=== PATIENT | female | born 1995 | race Two or more races ===

== ENCOUNTER 2017-08-22 00:25 | Emergency (ER) | payer MEDICAID ==
[2017-08-22 00:44] VITALS: BP 121/75
[2017-08-22] MEDS ORDERED: DIPH/PERTUSS(ACELL)/TETANUS VAC/PF 0.5 ML SYR (>=10YO) IM ONE (02:14)
[2017-08-22] MEDS ORDERED: LIDOCAINE 1% INJ (10 MG/ML) 10 ML MDV INJ ONE (02:14)
[2017-08-22] MEDS ORDERED: LIDOCAINE 1% INJ-PF (10 MG/ML) 30 ML SDV ONE (02:27)
[2017-08-22] MEDS ORDERED: IBUPROFEN 600 MG TABLET PO ONE (02:49)
--- NOTE | 2017-08-22 02:50 | ER Document Report ---
ED General - General Chief Complaint: Laceration Stated Complaint: FOOT INJURY Notes: Patient is a 22-year-old female without past medical history, unaware of her last tetanus immunization date who presents after falling, rolling her ankle over a piece of glass. She presents complaining of a severe, constant, aching pain to the right ankle. Any movement of the ankle worsens the pain. She has not tried anything to improve the pain. She did also sustain a 1 cm flap type laceration over the lateral malleolus. Denies any additional injuries today. No syncope as the etiology of today's fall. No history of similar injury in the past. TRAVEL OUTSIDE OF THE [place] IN LAST 30 DAYS: No - Related Data Allergies/Adverse Reactions: No Known Allergies Allergy (Verified 12/14/15 11:21) Past Medical History - General Information source: Patient - Social History Smoking Status: Never Smoker Frequency of alcohol use: None Drug Abuse: None Lives with: Spouse/Significant other Family History: Reviewed & Not Pertinent. denies: CAD Patient has suicidal ideation: No Patient has homicidal ideation: No - Past Medical History Cardiac Medical History: Denies: Hx DVT, Hx Heart Attack, Hx Hypertension Pulmonary Medical History: Denies: Hx Asthma, Hx Bronchitis, Hx Pneumonia Neurological Medical History: Reports: Hx Migraine Renal/ Medical History: Denies: Hx Peritoneal Dialysis - Immunizations Hx Diphtheria, Pertussis, Tetanus Vaccination: No Review of Systems - Review of Systems Notes: Constitutional: Negative for fever. Eyes: Negative for visual changes. ENT: Negative for facial injury Cardiovascular: Negative for chest injury. Respiratory: Negative for shortness of breath. Gastrointestinal: Negative for abdominal injury. Genitourinary: Negative for genital injury Musculoskeletal: Positive for right ankle injury Skin: Positive for laceration/abrasions. Neurological: Negative for head injury. Physical Exam - Vital signs Vitals: Temp Pulse Resp BP Pulse Ox 89 F L 89 20 121/75 97 08/22/17 00:41 08/22/17 00:41 08/22/17 00:41 08/22/17 00:41 08/22/17 00:41 The temperature is recorded is an obvious error. 98F is the recorded temperature Interpretation: Normal Notes: PHYSICAL EXAMINATION: GENERAL: Well-appearing, well-nourished and in no acute distress. HEAD: Atraumatic, normocephalic. EYES: sclera anicteric, conjunctiva are normal. ENT: Moist mucous membranes. NECK: Normal range of motion LUNGS: Normal work of breathing HEART: 2+ radial pulses bilaterally EXTREMITIES: no pitting or edema. No cyanosis. Mild swelling of the right ankle more prominent over the lateral malleolus. Dorsi and plantar flexion is present. NEUROLOGICAL: No focal neurological deficits. Moves all extremities spontaneously and on command. PSYCH: Normal mood, normal affect. SKIN: Warm, Dry, normal turgor, 1 cm flap type laceration over the central right lateral malleolus Course - Re-evaluation Re-evalutation: 08/22/17 02:48 Patient presents to right ankle pain and a small 1 cm flap type laceration over the lateral malleolus. Apparently she rolled her ankle when falling onto the glass object. There is bruising and ecchymosis over the lateral malleolus. 2+ DP pulse. X-ray without any evidence of an acute fracture. Patient is able to bear weight. The laceration was repaired without difficulty. The patient's tetanus was updated. At this time will discharge with return precautions and follow-up recommendations. Verbal discharge instructions given a the bedside and opportunity for questions given. Medication warnings reviewed. Patient is in agreement with this plan and has verbalized understanding of return precautions and the need for primary care follow-up in the next 24-72 hours. - Vital Signs Vital signs: Temp Pulse Resp BP Pulse Ox 89 F L 89 20 121/75 97 08/22/17 00:41 08/22/17 00:41 08/22/17 00:41 08/22/17 00:41 08/22/17 00:41 - Diagnostic Test Radiology reviewed: Image reviewed, Reports reviewed Radiology results interpreted by me: 08/22/17 03:22 Right ankle: No acute fracture or dislocation Procedures - Laceration/Wound Repair Right Ankle Wound length (cm): 1 Wound's Depth, Shape: Superficial Anesthetic type: 1% Lidocaine Wound explored: Clean Irrigated w/ Saline (mLs): 500 Wound Debrided: Minimal Wound Repaired With: Sutures Suture Size/Type: 5:0, Nylon Number of Sutures: 2 Layer Closure?: No Post-procedure wound care: Sterile dressing applied Post-procedure NV exam normal: Yes Complications: No Discharge - Discharge Clinical Impression: Right ankle pain Qualifiers: Chronicity: acute Qualified Code(s): M25.571 - Pain in right ankle and joints of right foot Laceration of right ankle Qualifiers: Encounter type: initial encounter Qualified Code(s): S91.011A - Laceration without foreign body, right ankle, initial encounter Condition: Good Disposition: HOME, SELF-CARE Additional Instructions: Please return to your primary doctor, the ED, or an urgent care in 7 days for suture removal. Return immediately if you develop spreading redness around the wound, pus from the wound, worsening pain, or a fever of >100.4. Keep the area clean and dry. Wash gently with soap and water twice daily and cover with antibiotic ointment. Your x-ray does not show any acute fracture today. You likely have a ligamentous strain. You should continue to take anti-inflammatories such as ibuprofen 600 mg every 6 hours. Continue to apply ice to the area is much your able. Please follow-up with your primary care physician if you do not have improving your symptoms in the next 1-2 weeks. Please return immediately if you develop weakness, numbness, spreading redness from the area, or any other symptoms that are concerning to you.
--- NOTE | 2017-08-22 03:18 | RADIOLOGY REPORT (SQ) ---
EXAM DESCRIPTION: ANKLE RIGHT COMPLETE CLINICAL HISTORY: 22 years, Female, pain, swelling COMPARISON: None. NUMBER OF VIEWS: 3 TECHNIQUE: Routine ankle radiographic protocol. LIMITATIONS: None. FINDINGS: Soft tissue swelling without underlying fracture or dislocation. Right tibiotalar joint appears intact. No lytic or blastic bone lesions. No radiopaque soft tissue foreign bodies or soft tissue gas. No evidence of osteomyelitis. IMPRESSION: Soft tissue swelling without underlying fracture or dislocation. 2011 [employer]- All Rights Reserved
== END 2017-08-22 04:14 | disposition home or self-care (01) ==
LOC: ER 00:25
PROC: 0HQMXZZ Repair Right Foot Skin, External Approach (ICD-10-PCS; principal; 2017-08-22)
DX: S91.011A Laceration without foreign body, right ankle, initial encounter (principal); M25.571 Pain in right ankle and joints of right foot; W25.XXXA Contact with sharp glass, initial encounter
CPT/HCPCS: 99283; 90471; 73610; 90715; 12001; J3490

== ENCOUNTER 2018-04-19 19:32 | Emergency (ER) | payer MEDICAID ==
[2018-04-19] MEDS ORDERED: ONDANSETRON 4 MG TAB.RAPDIS PO ONE (20:12)
--- NOTE | 2018-04-19 20:16 | ER Document Report ---
ED General - General Chief Complaint: Abdominal Pain Stated Complaint: VAGINAL BLEEDING,ABDOMINAL PAIN Time Seen by Provider: 04/19/18 20:07 TRAVEL OUTSIDE OF THE [place] IN LAST 30 DAYS: No - HPI Notes: Patient is a 22-year-old female who presents to the ED complaining of intermittent lower abdominal cramping and vaginal bleeding 2 days. Patient is also had nausea without vomiting. Patient states that she was evaluated a few days ago after doctor's office for a checkup due to nausea and was found that she was . Patient states that she is otherwise been eating and drinking without difficulties, but does have a decreased p.o. intake. She is urinating normally and having normal bowel movements. Patient has not noted any other vaginal odor or discharge. The pain does not radiate. Patient is not sure how far along she is. Her last full menstrual period was in January, but she is usually irregular. Patient does admit to smoking but denies IV drug use. She denies any drug allergies. Denies any headache, fever, neck pain, URI , sore throat, chest pain, palpitations, syncope, cough, shortness of breath, wheeze, dyspnea, vomiting/diarrhea, urinary retention, dysuria, hematuria, back pain, loss of control of bowel or bladder, numbness/tingling, muscle paralysis/ weakness, or rash. - Related Data Allergies/Adverse Reactions: No Known Allergies Allergy (Verified 12/14/15 11:21) Past Medical History - Social History Smoking Status: Current Some Day Smoker Frequency of alcohol use: Rare Drug Abuse: Marijuana Family History: Reviewed & Not Pertinent. denies: CAD Patient has suicidal ideation: No Patient has homicidal ideation: No - Past Medical History Cardiac Medical History: Denies: Hx DVT, Hx Heart Attack, Hx Hypertension Pulmonary Medical History: Denies: Hx Asthma, Hx Bronchitis, Hx Pneumonia Neurological Medical History: Reports: Hx Migraine Endocrine Medical History: Reports: Hx Diabetes Mellitus Type 2 Renal/ Medical History: Denies: Hx Peritoneal Dialysis - Immunizations Hx Diphtheria, Pertussis, Tetanus Vaccination: No Review of Systems - Review of Systems -: Yes All other systems reviewed and negative Physical Exam - Vital signs Vitals: Temp Pulse Resp BP Pulse Ox 99.0 F 104 H 18 133/81 H 98 04/19/18 19:54 04/19/18 19:54 04/19/18 19:54 04/19/18 19:54 04/19/18 19:54 - Notes Notes: PHYSICAL EXAMINATION: GENERAL: Well-appearing, well-nourished and in no acute distress. LUNGS: Breath sounds clear to auscultation bilaterally and equal. No wheezes rales or rhonchi. HEART: Regular rate and rhythm without murmurs, rubs, gallops. ABDOMEN: Soft, nontender, nondistended abdomen. No guarding, no rebound. No masses appreciated. Normal bowel sounds present. No CVA tenderness bilaterally. : deferred. Musculoskeletal: FROM to passive/active. Strength 5+/5. Extremities: No cyanosis, clubbing, or edema b/l. Peripheral pulses 2+. Capillary refill less than 3 seconds. NEUROLOGICAL: Normal speech, normal gait. PSYCH: Normal mood, normal affect. SKIN: Warm, Dry, normal turgor, no rashes or lesions noted. Course - Re-evaluation Re-evalutation: 04/19/18 22:46 Patient is an afebrile, well-hydrated, 22-year-old female who presents to the ED with an acute UTI and bacterial vaginosis as well as being approximately 13.5 weeks . CBC, CMP, transvaginal ultrasound were unremarkable for any acute pathology. Patient has a living intrauterine at this time. She has no noted vaginal bleeding and the cervix is closed. See urinalysis results. Urine cultures pending. See wet mount results. Chlamydia gonorrhea tests were negative. Patient has no significant tachycardia, tachypnea, or hypoxia. She is tolerating p.o. without difficulties. She is nontoxic- appearing. Abdomen is soft and nontender at this time. No other labs or imaging warranted at this time based on H&P. Low suspicion/risk for acute appendicitis, bowel obstruction, acute cholecystitis, acute cholangitis, perforated diverticulitis, incarcerated hernia, pancreatitis, perforated ulcer, peritonitis, sepsis, pelvic inflammatory disease, ectopic , tubo- ovarian abscess, ovarian torsion, or other systemic emergent condition at this time. Patient is aware that her condition can change from initial presentation and she needs to monitor symptoms closely and seek medical attention if any acute changes. Reviewed with Dr. Schmid about covering for BV in which was okay'd. Rx for flagyl and keflex. Conservative measures otherwise for symptoms. Recheck with OBGYN in 3-5 days. Recheck with your PCM in 3-5 days. Return to the ED with any worsening/concerning symptoms otherwise as reviewed in discharge. Patient is in agreement. - Vital Signs Vital signs: Temp Pulse Resp BP Pulse Ox 99.0 F 104 H 18 133/81 H 98 04/19/18 19:54 04/19/18 19:54 04/19/18 19:54 04/19/18 19:54 04/19/18 19:54 - Laboratory Result Diagrams: 04/19/18 20:20 04/19/18 20:20 Laboratory results interpreted by me: 04/19/18 04/19/18 04/19/18 20:20 20:20 20:20 WBC 11.5 H Hct 35.7 L Chloride 108 H Carbon Dioxide 21 L BUN 5 L Creatinine 0.43 L AST 299 H ALT 213 H Beta HCG, Quant 66580.00 H Urine Protein 30 H Urine Urobilinogen 4.0 H Ur Leukocyte Esterase LARGE H Discharge - Discharge Clinical Impression: Bacterial vaginosis, Acute UTI (urinary tract infection), Pelvic pain Condition: Stable Disposition: HOME, SELF-CARE Instructions: Cephalexin ([facility]), Metronidazole ([facility]), Pelvic Pain in ( [facility]), Urinary Tract Infection ([facility]), Vaginosis, Bacterial ([facility]) Additional Instructions: Push fluids (i.e. water, cranberry juice) Proper hygenic technique Keep the skin clean Tylenol as needed Take medications as directed F/u with your PCM/OBGYN in 3-5 days for a recheck Consider consult with a Urologist for ongoing/worsening symptoms. Return to the ED with any worsening symptoms and/or development of fever, headache, chest pain, palpitations, syncope, shortness of breath, trouble breathing, abdominal pain, n/v/d, blood in stool/urine, loss of control of bowel /bladder, urinary retention, or other worsening symptoms that are concerning to you. Prescriptions: Cephalexin Monohydrate [Keflex 500 mg Capsule] 500 mg PO BID #14 capsule Metronidazole [Flagyl] 500 mg PO BID #14 tablet Forms: Elevated Blood Pressure, Smoking Cessation Education Referrals: [facility] [Provider Group] - Follow up in 3-5 days
[2018-04-19 20:45] LABS: ABSOLUTE EOSINOPHILS # (AUTO) 0.1 10^3/uL (0.0-0.6); ABSOLUTE LYMPHOCYTES (AUTO) 3.5 10^3/uL (0.5-4.7); ABSOLUTE MONOCYTES (AUTO) 0.4 10^3/uL (0.1-1.4); ABSOLUTE NEUT (AUTO) 7.5 10^3/uL (1.7-8.2); BASOPHILS % (AUTO) 0.4 % (0-2); EOSINOPHILS % (AUTO) 0.7 % (0-6); HEMATOCRIT 35.7 % (36.0-47.0); HEMOGLOBIN 12.2 g/dL (12.0-15.5); LYMPHOCYTES % (AUTO) 30.1 % (13-45); MEAN CORPUSCULAR HEMOGLOBIN 27.8 pg (27.0-33.4); MEAN CORPUSCULAR HGB CONC 34.3 g/dL (32.0-36.0); MEAN CORPUSCULAR VOLUME 81 fl (80-97); MONOCYTES % (AUTO) 3.5 % (3-13); PLATELET COUNT 440 10^3/uL (150-450); RED CELL DISTRIBUTION WIDTH 13.6 % (11.5-14.0); SEGMENTED NEUTROPHILS % (AUTO) 65.3 % (42-78); TOTAL CELLS COUNTED % (AUTO) 100 %; WHITE BLOOD COUNT 11.5 10^3/uL (4.0-10.5)
[2018-04-19 20:57] LABS: BACTERIA (WET MOUNT) 3+ BACTERIA SEEN; RBCS (WET MOUNT) 1+ RBCS SEEN; T.VAGINALIS (WET MOUNT) NO TRICHOMONAS SEEN; WBCS (WET MOUNT) 1+ WBCS SEEN; YEAST (WET MOUNT) NO YEAST SEEN
[2018-04-19 20:59] LABS: APPEARANCE,URINE CLOUDY; BILIRUBIN,URINE NEGATIVE (NEGATIVE); COLOR,URINE YELLOW; GLUCOSE, URINE NEGATIVE (NEGATIVE); KETONES,URINE NEGATIVE (NEGATIVE); LEUKOCYTE ESTERASE,URINE LARGE (NEGATIVE); NITRITE,URINE NEGATIVE (NEGATIVE); PROTEIN,URINE 30 mg/dL (NEGATIVE); URINE SPECIFIC GRAVITY 1.026
[2018-04-19 22:02] LABS: ALANINE AMINOTRANSFERASE 213 U/L (9-52); ALBUMIN 3.7 g/dL (3.5-5.0); ALKALINE PHOSPHATASE 88 U/L (38-126); ANION GAP 12 (5-19); ASPARTATE AMINO TRANSFERASE 299 U/L (14-36); BILIRUBIN,DIRECT 0.3 mg/dL (0.0-0.4); BILIRUBIN,TOTAL 0.3 mg/dL (0.2-1.3); BLOOD UREA NITROGEN 5 mg/dL (7-20); CALCIUM 9.7 mg/dL (8.4-10.2); CARBON DIOXIDE 21 mmol/L (22-30); CHLORIDE 108 mmol/L (98-107); GLUCOSE 107 mg/dL (75-110); POTASSIUM 4.3 mmol/L (3.6-5.0); TOTAL PROTEIN 6.9 g/dL (6.3-8.2)
[2018-04-19 22:15] LABS: CHLAM PCR NOT DETECTED (NOT DETECT); GON PCR NOT DETECTED (NOT DETECT)
--- NOTE | 2018-04-19 22:18 | RADIOLOGY REPORT (SQ) ---
EXAM DESCRIPTION: U/S EP2CTFD TRNABD 1GES W/ODOP COMPLETED DATE/TIME: 04/19/2018 10:06 pm REASON FOR STUDY: , bleeding, cramping COMPARISON: None. TECHNIQUE: Transabdominal static and realtime grayscale images acquired of the pelvis. Additional se lected spectral and color Doppler images recorded. All images stored on PACs. bHCG: Not available. CLINICAL DATES: Not Available. LIMITATIONS: None. FINDINGS: FETUS: Living intrauterine . ULTRASOUND EGA: 13 weeks 4 days ULTRASOUND SERENITY: 10/21/2018 CRL: 7.4 cm FHR: 152 beats per minute. SUBCHORIONIC BLEED: No. SIZE OF BLEED: Not applicable. UTERUS: No masses. No anomalies. CERVICAL LENGTH: 2.1 cm Closed. RIGHT ADNEXA: Ovary not identified. No adnexal free fluid. No adnexal masses. LEFT ADNEXA: Ovary not identified. No adnexal free fluid. No adnexal masses. FREE FLUID: None. OTHER: No other significant finding. IMPRESSION: LIVING INTRAUTERINE . EGA 13 weeks 4 days. Trimester of : 2nd. TECHNICAL DOCUMENTATION: JOB ID: [id number] [employer]- All Rights Reserved rev Reading location - IP/workstation name: [email or web address]
[2018-04-19 22:56] VITALS: BP 125/66
== END 2018-04-19 22:58 | disposition home or self-care (01) ==
LOC: ER 19:32
DX: O23.41 Unspecified infection of urinary tract in pregnancy, first trimester (principal); N39.0 Urinary tract infection, site not specified; R10.2 Pelvic and perineal pain; N76.0 Acute vaginitis; B96.89 Other specified bacterial agents as the cause of diseases classified elsewhere; R11.0 Nausea; R10.30 Lower abdominal pain, unspecified; F17.200 Nicotine dependence, unspecified, uncomplicated; Z3A.13 13 weeks gestation of pregnancy
CPT/HCPCS: 99284; 86900; 86901; 36415; 87086; 87210; 84702; 85025; 80053; 81001; 87491; 87591; 76801; S0119

== ENCOUNTER 2018-09-08 13:04 | Outpatient (CLI) | payer MEDICAID ==
[2018-09-08] MEDS ORDERED: HYDROXYZINE PAMOATE 50 MG CAPSULE ONE (13:40)
[2018-09-08 13:43] LABS: APPEARANCE,URINE SLIGHTLY-CLOUDY; BILIRUBIN,URINE NEGATIVE (NEGATIVE); COLOR,URINE YELLOW; GLUCOSE, URINE NEGATIVE (NEGATIVE); KETONES,URINE NEGATIVE (NEGATIVE); LEUKOCYTE ESTERASE,URINE TRACE (NEGATIVE); NITRITE,URINE NEGATIVE (NEGATIVE); PROTEIN,URINE NEGATIVE (NEGATIVE)
[2018-09-08] MEDS ORDERED: HYDROXYZINE PAMOATE 50 MG CAPSULE PO ONE (14:00)
--- NOTE | 2018-09-08 14:22 | Non Stress Test Report ---
Non Stress Test Datetime Report Generated by CPN: 09/08/2018 14:22 DEMOGRAPHIC EGA NST: 33.5 INDICATION Indication for Study: Ordered by Provider MONITORING Monitor Explained: Monitor Explained; Test Explained; Patient Verbalized Understanding Time on Monitor: 09/08/2018 13:23 Time off Monitor: 09/08/2018 14:13 NST Duration: 50 NST INTERVENTIONS NST Interventions: PO Hydration; Reposition Patient Physician Notified NST: CecilRg, CNM BABY A: [id number] BABY A Movement : Present Contraction Frequency : 0 FHR Baseline : 140 Accelerations : 15X15 Decelerations : None Variability : Moderate 6-25bpm NST Review: Meets Criteria for Reactive NST NST Review and Verified By : DONNA Nunn Results: Reactive NST REPORT Report Trigger: Send Report
[2018-09-08 15:08] LABS: URINE AMPHETAMINES SCREEN NEGATIVE; URINE BARBITURATES SCREEN NEGATIVE; URINE BENZODIAZEPINES SCREEN NEGATIVE; URINE COCAINE SCREEN NEGATIVE; URINE MARIJUANA (THC) SCREEN NEGATIVE; URINE METHADONE SCREEN NEGATIVE; URINE PHENCYCLIDINE SCREEN NEGATIVE
== END 2018-09-08 14:29 | disposition home or self-care (01) ==
LOC: LC 13:04
PROVIDERS: ATTEND Obstetrics & Gynecology
PROC: 4A1HXCZ Monitoring of Products of Conception, Cardiac Rate, External Approach (ICD-10-PCS; principal; 2018-09-08)
DX: O47.03 False labor before 37 completed weeks of gestation, third trimester (principal); O46.93 Antepartum hemorrhage, unspecified, third trimester; Z3A.33 33 weeks gestation of pregnancy
CPT/HCPCS: 59025; 81001; 80307; J3490

== ENCOUNTER 2018-10-01 21:35 | Inpatient (IN) | payer MEDICAID ==
[2018-10-01] MEDS ORDERED: RINGERS SOLUTION,LACTATED 1,000 ML IV PRN (21:58)
[2018-10-01] MEDS ORDERED: ACETAMINOPHEN 325 MG TABLET PO PRN (21:58)
[2018-10-01] MEDS ORDERED: ZOLPIDEM TARTRATE 5 MG TABLET PO PRN (21:58)
[2018-10-01] MEDS ORDERED: MAG HYDROX/AL HYDROX/SIMETH SUSP 30 ML UDCUP PO PRN (21:58)
[2018-10-01] MEDS ORDERED: RINGERS SOLUTION,LACTATED 300 ML IV ONE (22:20)
[2018-10-01] MEDS ORDERED: DINOPROSTONE 10 MG VAGINAL INSERT.SR PV ONE (22:20)
[2018-10-01 22:48] LABS: ABSOLUTE BASOPHILS # (AUTO) 0.1 10^3/uL (0.0-0.2); ABSOLUTE EOSINOPHILS # (AUTO) 0.1 10^3/uL (0.0-0.6); ABSOLUTE LYMPHOCYTES (AUTO) 4.4 10^3/uL (0.5-4.7); ABSOLUTE MONOCYTES (AUTO) 0.4 10^3/uL (0.1-1.4); ABSOLUTE NEUT (AUTO) 7.3 10^3/uL (1.7-8.2); BASOPHILS % (AUTO) 0.5 % (0-2); EOSINOPHILS % (AUTO) 0.8 % (0-6); HEMATOCRIT 33.8 % (36.0-47.0); HEMOGLOBIN 11.2 g/dL (12.0-15.5); MEAN CORPUSCULAR HEMOGLOBIN 26.4 pg (27.0-33.4); MEAN CORPUSCULAR HGB CONC 33.3 g/dL (32.0-36.0); MEAN CORPUSCULAR VOLUME 79 fl (80-97); MONOCYTES % (AUTO) 3.1 % (3-13); PLATELET COUNT 397 10^3/uL (150-450); RED BLOOD COUNT 4.26 10^6/uL (3.72-5.28); SEGMENTED NEUTROPHILS % (AUTO) 59.6 % (42-78); TOTAL CELLS COUNTED % (AUTO) 100 %; WHITE BLOOD COUNT 12.3 10^3/uL (4.0-10.5)
[2018-10-01 22:57] LABS: APPEARANCE,URINE SLIGHTLY-CLOUDY; BILIRUBIN,URINE NEGATIVE (NEGATIVE); COLOR,URINE YELLOW; GLUCOSE, URINE NEGATIVE (NEGATIVE); KETONES,URINE NEGATIVE (NEGATIVE); LEUKOCYTE ESTERASE,URINE SMALL (NEGATIVE); NITRITE,URINE NEGATIVE (NEGATIVE); PROTEIN,URINE NEGATIVE (NEGATIVE); URINE SPECIFIC GRAVITY 1.018
[2018-10-01] MEDS ORDERED: DINOPROSTONE 10 MG VAGINAL INSERT.SR ONE (23:04)
[2018-10-01 23:52] LABS: URINE AMPHETAMINES SCREEN NEGATIVE; URINE BARBITURATES SCREEN NEGATIVE; URINE BENZODIAZEPINES SCREEN NEGATIVE; URINE COCAINE SCREEN NEGATIVE; URINE METHADONE SCREEN NEGATIVE; URINE PHENCYCLIDINE SCREEN NEGATIVE
[2018-10-02 00:14] LABS: URINE MARIJUANA (THC) SCREEN NEGATIVE
--- NOTE | 2018-10-02 01:38 | Admission Physical ---
Datetime Report Generated by CPN: 10/02/2018 01:37 CURRENT ADMISSION Chief Complaint: Scheduled Induction of Labor Indication for Induction: Maternal Diabetes Admit Impression : Term, Intrauterine Admit Plan: Admit to Unit; Initiate Labor Induction Protocol ALLERGIES Medication Allergies: Yes Medication Allergies: metoclopramide (10/01/2018); diphenhydramine (10/01/2018) Latex: No Latex Allergies Food Allergies: N/A Environmental Allergies: N/a OBSTETRICAL HISTORY EDC: 10/22/2018 00:00 : 1 Para: 0 Term: 0 : 0 SAB: 0 IAB: 0 Ectopic: 0 Livin Cesareans: 0 VBACs: 0 Multiple Births: 0 Gestational Diabetes: No Rh Sensitization: No Incompetent Cervix: No VINAY: No Infertility: No ART Treatment: No Uterine Anomaly: No IUGR: No Hx Previous C/S: No Macrosomia: No Hx Loss/Stillborn: No PIH: No Hx : No Placenta Previa/Abruption: No Depression/PP Depression: No PTL/PROM: No Post Hemorrhage: No Current Procedures: Ultrasound; NST Obstetrical History Comments: G1 - Current , GHTN SEE RECORDS Alcohol: No Marijuana : No Cocaine: No Other Illicit Drugs: No Cigarettes: Former Smoker. [id number] Cigarette Frequency: < 5 per day Cigarette Comments: Before MEDICAL HISTORY Diabetes: Yes Diabetes Type: Type II - NIDDM Blood Transfusion: No Pulmonary Disease (Asthma, TB): No Breast Disease: No Hypertension: Yes Community Outreach Director Surgery: No Heart Disease: No Hosp/Surgery: No Autoimmune Disorder: No Anesthetic Complications: No Kidney Disease: Yes Abnormal Pap Smear: No Neuro/Epilepsy: No Psychiatric Disorders: No Other Medical Diseases: No Hepatitis/Liver Disease: No Significant Family History: No Varicosities/Phlebitis: No Trauma/Violence : No Thyroid Dysfunction: No Medical History Comments: UTI's INFECTIOUS HISTORY Gonorrhea: No Genital Herpes: No Chlamydia: No Tuberculosis: No Syphilis: No Hepatitis: No HIV/AIDS Exposure: No Rash or Viral Illness: No HPV: No PHYSICAL EXAM General: Normal HEENT: Normal Neurologic: Normal Thyroid: Normal Heart: Normal Lungs: Normal Breast: Normal Back: Normal Abdomen: Normal Genitourinary Exam: Normal Extremities: Normal DTRs: Normal Pelvic Type: Adequate Vital Signs: Reviewed; Within Normal Limits VAGINAL EXAM Dilatation: closed Effacement: thick Station: -3 Contraction Comments: rare MEMBRANES Membranes: Intact FETUS A EGA: 37.1 Monitoring: External US FHR- Baseline: 130s Variability: Moderate 6-25bpm Accelerations: 15X15 Decelerations: None FHR Category: Category I Admit Comment: Cervidil placed at approx 2315 PLANS FOR LABOR AND DELIVERY Labor and Delivery: None Pain Management: Natural Feeding Preference: Both Benefit of Breast Feed Discussed: Yes Circumcision: Yes INFORMED CONSENT Signature: with User ID: [email or web address]
[2018-10-02] MEDS ORDERED: ZOLPIDEM TARTRATE 5 MG TABLET ONE (02:04)
[2018-10-02] MEDS ORDERED: MISOPROSTOL 0.2 MG TABLET ONE (03:37)
[2018-10-02] MEDS ORDERED: OXYTOCIN/NORMAL SALINE 20 UNIT/1,000 ML RTUINJ ONE (03:37)
[2018-10-02] MEDS ORDERED: OXYTOCIN 10 UNIT/ML VIAL ONE (03:37)
[2018-10-02] MEDS ORDERED: LIDOCAINE 1% INJ-PF (10 MG/ML) 30 ML SDV ONE (03:37)
[2018-10-02] MEDS ORDERED: BUPIVACAINE HCL 0.5 % INJ/PF 30 ML SDV ONE (03:41)
[2018-10-02] MEDS ORDERED: FENTANYL/BUPIVACAINE/NS/PF 0 MCG/0 ML RTUINJ EPI ONE (03:41)
[2018-10-02] MEDS ORDERED: EPHEDRINE SULFATE INJ 50 MG/1 ML AMPULE ONE (03:41)
--- NOTE | 2018-10-02 03:41 | L&D Progress Notes ---
PROGRESS NOTES Datetime Report Generated by CPN: 10/02/2018 03:41 PROGRESS NOTE Impression: Normal Progression of Labor Procedures: Scalp Electrode Plan: Continue Present Management; Anesthesia Consult Vital Signs : Reviewed; Within Normal Limits Comment: FSE placed. Cervix progressed from 2 to 6 cm quickly. Will call anesthesia for epidural placement. VAGINAL EXAM Dilatation: 6 Dilatation: closed Effacement: 100% Effacement: [facility] Station: 2 Station: -3 Contractions: q 2 minutes Contractions: rare LAST VAGINAL EXAM-NURSING Dilitation: 6.0 Dilitation: 2.5 Dilitation: 1.0 Dilitation: cl Effacement: 100 Effacement: 25 Effacement: th Station: 0 Station: -1 Station: -3 Station: -3 Contractions: applied MEMBRANES Membranes: Intact FETUS A FHR - Baseline: 140s Monitoring: Internal Scalp Electrode Variability: Moderate 6-25bpm Accelerations: 15X15 Decelerations: None FHR Category: Category I : 37.1 : 37.1 SIGNATURE SIGNATURE: [id number];[id number];[id number] SIGNATURE: [id number];[id number] SIGNATURE: [id number] Signature: with User ID: [email or web address]
[2018-10-02] MEDS ORDERED: BENZOCAINE/MENTHOL AEROSOL SPRAY 56 ML TOP PRN (05:17)
[2018-10-02] MEDS ORDERED: DIBUCAINE 1% OINTMENT 28 GM TP PRN (05:17)
[2018-10-02] MEDS ORDERED: OXYTOCIN/NORMAL SALINE 20 UNIT/1,000 ML RTUINJ IV PRN (05:17)
[2018-10-02] MEDS ORDERED: ZOLPIDEM TARTRATE 5 MG TABLET PO PRN (05:17)
[2018-10-02] MEDS ORDERED: DIPH/PERTUSS(ACELL)/TETANUS VAC/PF 0.5 ML SYR (>=10YO) IM PRN (05:17)
[2018-10-02] MEDS ORDERED: ACETAMINOPHEN WITH CODEINE #3 TABLET PO PRN ×2 (05:17)
[2018-10-02] MEDS ORDERED: MEASLES,MUMPS&RUBELLA VACC/PF 0.5 ML VIAL SUBCUT PRN (05:17)
--- NOTE | 2018-10-02 06:46 | Delivery Summary ---
Del Sum A-C Datetime Report Generated by CPN: 10/02/2018 06:46 DELIVERY PERSONNEL DELIVERY PERSONNEL: [id number] Delivery Doctor:: Hannah Che MD Labor and Delivery Nurse:: Lizzeth Acevedo RNregion manager Nurse:: Geetha Reyes RN Lithograph Press Operator Tinware/CHIEF MARKETING OFFICER: Cecyjae Vázquez, ST MATERNAL INFORMATION Delivery Anesthesia: None Medications After Delivery: Pitocin Drip 20 Units/1000ml NSS Maternal Complications: Precipitous Labor (<3hrs) Provider Comments: of a viable male at 0436 with an OA with body and left shoulder cord x 1 presenation; APGARS 8,9 LABOR SUMMARY EDC: 10/22/2018 00:00 No. Babies in Womb: 1 Attempted: No Labor Anesthesia: None LABOR INFORMATION Reason for Induction: Maternal Diabetes Onset of Labor: 10/02/2018 02:27 Complete Dilatation: 10/02/2018 04:26 Cervical Ripening Agents: Cervidil Oxytocin: N/A Group B Beta Strep: negative Antibiotics # of Doses: 0 Steroids Given: None Reason Steroids Not Administered: Not Applicable MEMBRANES Membranes Rupture Method: Spontaneous Rupture of Membranes: 10/02/2018 02:25 Length of Rupture (hr): 2.18 Amniotic Fluid Color: Clear Amniotic Fluid Amount: Moderate Amniotic Fluid Odor: None STAGES OF LABOR Stage 1 hr: 1 Stage 1 min: 59 Stage 2 hr: 0 Stage 2 min: 10 Stage 3 hr: 0 Stage 3 min: 4 Total Time in Labor hr: 2 Total Time in Labor min: 13 VAGINAL DELIVERY Episiotomy: None Laceration #1: Periurethral Laceration Extension #1: First Degree Laceration #2: Periurethral Laceration Extension #2: First Degree Laceration #3: Vaginal Laceration Extension #3: Second Degree Laceration Repair: Yes Laceration Repair Note: 2-0 chromic used to repair the bilateral 1st degree periurethral lacs; 2-0 Chromic also used to repair the left lateral vaginal wall lac (2nd degree) Sponge Count Correct: N/A Sharps Count Correct: Yes CSECTION DELIVERY Primary Indication: N/A Secondary Indication: N/A CSection Incidence: N/A Labor: N/A Elective: N/A CSection Incision: N/A BABY A INFORMATION Infant Delivery Date/Time: 10/02/2018 04:36 Method of Delivery: Vaginal Born in Route : No : N/A Forceps: N/A Vacuum Extraction: N/A Shoulder Dystocia : No PRESENTATION/POSITION BABY A Presentation: Cephalic Cephalic Presentation: Vertex Vertex Position: Right Occipital Anterior Breech Presentation: N/A PLACENTA INFORMATION BABY A Placenta Delivery Time : 10/02/2018 04:40 Placenta Method of Delivery: Spontaneous Placenta Status: Delivered SCORES BABY A Heart Rate 1 min: >100 bpm Resp Effort 1 min: Good Cry Reflex Irritability 1 min: Cough or Sneeze or Pulls Away Muscle Tone 1 min: Active Motion Color 1 min: Blue/Pale SCORE 1 MIN: 8 Heart Rate 5 min: >100 bpm Resp Effort 5 min: Good Cry Reflex Irritability 5 min: Cough or Sneeze or Pulls Away Muscle Tone 5 min: Active Motion Color 5 min: Body [place], Extremities Blue SCORE 5 MIN: 9 INFORMATION BABY A Gestational Age at Delivery: 37.1 Gestational Status: Early Term- 37- 38.6 Weeks Outcome : Liveborn Condition : Stable Sex: Male IDENTIFICATION BABY A Verification Date/Time: 10/02/2018 05:51 ID Band Number: [id number] Mother's Name Verified: Yes Infant RN Verifying Infant: Winter Additional Verifying Personnel: Tim RN WEIGHT/LENGTH BABY A Birthweight (gm): 2690 Infant Weight (lb): 5 Weight (oz): 15 Infant Length (in): 19.50 Length (cm): 49.53 CORD INFORMATION BABY A No. Cord Vessels: 3 Nuchal Cord : N/A Nuchal Cord- Other: body cord Cord Blood Taken: Yes-For Storage (Mom's Blood type +) Infant Suction: Mouth; Nose ASSESSMENT BABY A Infant Complications: None Physical Findings at Delivery: Within Normal Limits Respirations: Appears Normal Skin to Skin: Yes Section Leader/ALS Called : No Infant Care By: Juan F Reyes RN Transferred To: Remains with Mother BABY B INFORMATION : N/A SIGNATURES Signature: with User ID: [email or web address]
[2018-10-02] MEDS: IBUPROFEN 800 MG TABLET PO SCH ×3 (08:17→23:15)
[2018-10-02] MEDS: PRENATAL VITAMIN W DHA CAPSULE PO SCH (09:56)
[2018-10-02] MEDS: DOCUSATE SODIUM 100 MG CAPSULE PO SCH ×3 (09:57→17:31)
[2018-10-02] MEDS: FERROUS SULFATE 325 MG TABLET PO SCH ×2 (09:57→17:30)
[2018-10-02] MEDS: SENNOSIDES/DOCUSATE 8.6-50 MG 1 EACH TABLET PO SCH ×2 (09:57→16:59)
[2018-10-03] MEDS: IBUPROFEN 800 MG TABLET PO SCH ×3 (06:27→21:07)
[2018-10-03 08:08] LABS: HEMATOCRIT 31.6 % (36.0-47.0); HEMOGLOBIN 10.5 g/dL (12.0-15.5); MEAN CORPUSCULAR HEMOGLOBIN 26.8 pg (27.0-33.4); MEAN CORPUSCULAR HGB CONC 33.4 g/dL (32.0-36.0); MEAN CORPUSCULAR VOLUME 80 fl (80-97); PLATELET COUNT 351 10^3/uL (150-450); RED BLOOD COUNT 3.94 10^6/uL (3.72-5.28); RED CELL DISTRIBUTION WIDTH 15.6 % (11.5-14.0); WHITE BLOOD COUNT 10.8 10^3/uL (4.0-10.5)
[2018-10-03] MEDS: SENNOSIDES/DOCUSATE 8.6-50 MG 1 EACH TABLET PO SCH (10:16)
[2018-10-03] MEDS: DOCUSATE SODIUM 100 MG CAPSULE PO SCH ×2 (10:16→17:25)
[2018-10-03] MEDS: PRENATAL VITAMIN W DHA CAPSULE PO SCH (10:18)
[2018-10-03] MEDS: FERROUS SULFATE 325 MG TABLET PO SCH ×2 (10:18→17:27)
[2018-10-04] MEDS: FERROUS SULFATE 325 MG TABLET PO SCH (09:44)
[2018-10-04] MEDS: PRENATAL VITAMIN W DHA CAPSULE PO SCH (09:44)
[2018-10-04] MEDS: DOCUSATE SODIUM 100 MG CAPSULE PO SCH (09:44)
[2018-10-04] MEDS: SENNOSIDES/DOCUSATE 8.6-50 MG 1 EACH TABLET PO SCH (09:44)
[2018-10-04] MEDS: IBUPROFEN 800 MG TABLET PO SCH ×2 (09:45→09:48)
[2018-10-04 10:34] VITALS: BP 126/54
--- NOTE | 2018-10-04 11:06 | PDOC DISCHARGE SUMMARY ---
Final Diagnosis Discharge Date: 10/04/18 - Final Diagnosis (1) Gestational hypertension Is this a current diagnosis for this admission?: Yes (2) Diabetes mellitus Is this a current diagnosis for this admission?: Yes (3) Vaginal delivery Is this a current diagnosis for this admission?: Yes Discharge Data - Discharge Medication Home Medications: Glyburide [Diabeta 5 mg Tablet] 5 mg PO DAILY 09/08/18 No122/Iron/Folic Acid [ Multi Tablet] 1 each PO DAILY 09/08/18 Reason(s) for Admission: Induction of Labor, PIH Procedures: NST Intrapartum Procedure(s): Spontaneous Vaginal Delivery Complication(s): Laceration-Vaginal, Laceration-Periurethral Laceration-Degree: 2nd - Diagnosis Test Laboratory: Temp Pulse Resp BP Pulse Ox 98.6 F 72 18 126/54 H 99 10/04/18 10:34 10/04/18 10:34 10/04/18 10:34 10/04/18 10:34 10/04/18 10:34 10/01/18 10/01/18 10/03/18 21:54 22:30 07:40 RBC 4.26 3.94 Hgb 11.2 L 10.5 L Hct 33.8 L 31.6 L Urine Opiates Screen NEGATIVE - Discharge information/Instructions Discharge Activity: Balance Activity w/Rest, No tub bath Discharge Diet: Diabetic Disposition: HOME, SELF-CARE Follow up with: [facility] in: 3, Weeks
--- NOTE | 2018-10-04 11:08 | PDOC PROGRESS REPORT ---
Subjective-OB Progress Note for:: 10/04/18 Subjective: Pt doing well, no concerns. She reports light bleeding, regular diet and voiding without difficulty. Breast and bottlefeeding. Physical Exam (OB) Vital Signs: Temp Pulse Resp BP Pulse Ox 98.6 F 72 18 126/54 H 99 10/04/18 10:34 10/04/18 10:34 10/04/18 10:34 10/04/18 10:34 10/04/18 10:34 Intake & Output 10/03/18 10/04/18 10/05/18 06:59 06:59 06:59 Intake Total 1000 Balance 1000 - PIH/Pre-Eclampsia DTR's: 2 + Clonus: Negative Headache: Absent Epigastric Pain: No Visual Changes: No - Abdomen Description: Soft Hernia Present: No Fundal Description: Firm, Midline Fundal Height: u/u - u/2 Objective-Diagnostic Laboratory: 10/03/18 07:40 Assessment and Plan(PN) - Assessment and Plan (1) Gestational hypertension Qualifiers: Trimester: third trimester Qualified Code(s): O13.3 - Gestational [ -induced] hypertension without significant proteinuria, third trimester Is this a current diagnosis for this admission?: Yes (2) Diabetes mellitus Qualifiers: Diabetes mellitus type: type 2 Diabetes mellitus termite exterminator helper insulin use: unspecified skilled nursing insulin use status Diabetes mellitus complication status : with unspecified complications Qualified Code(s): E11.8 - Type 2 diabetes mellitus with unspecified complications Is this a current diagnosis for this admission?: Yes (3) Vaginal delivery Is this a current diagnosis for this admission?: Yes - Time Spent with Patient Time with patient: Less than 15 minutes Medications reviewed and adjusted accordingly: Yes - Disposition Anticipated Discharge: Home Within: within 24 hours
== END 2018-10-04 13:20 | disposition home or self-care (01) | DRG 806 ==
LOC: LR 21:35 → 2S 10-02 08:12
PROVIDERS: ADMIT Obstetrics & Gynecology; ATTEND Obstetrics & Gynecology
PROC: 10E0XZZ Delivery of Products of Conception, External Approach (ICD-10-PCS; principal; 2018-10-02)
PROC: 0HQ9XZZ Repair Perineum Skin, External Approach (ICD-10-PCS; 2018-10-02)
DX: O24.12 Pre-existing type 2 diabetes mellitus, in childbirth (principal); Z68.42 Body mass index [BMI] 45.0-49.9, adult; Z37.0 Single live birth; E11.9 Type 2 diabetes mellitus without complications; O13.4 Gestational [pregnancy-induced] hypertension without significant proteinuria, complicating childbirth; O69.2XX0 Labor and delivery complicated by other cord entanglement, with compression, not applicable or unspecified; O99.214 Obesity complicating childbirth; E66.8 Other obesity; O99.334 Smoking (tobacco) complicating childbirth; F17.211 Nicotine dependence, cigarettes, in remission; O70.0 First degree perineal laceration during delivery; Z3A.37 37 weeks gestation of pregnancy; Z79.84 Long term (current) use of oral hypoglycemic drugs; Z91.19 Patient's noncompliance with other medical treatment and regimen
CPT/HCPCS: 36415; 80307; 81005; 82962; 85025; 85027; 86592; 86850; 86900; 86901; 94760; J2590; J3010; J3490